=== PATIENT | male | born 1960 | race Caucasian/White ===

== ENCOUNTER 2021-01-24 20:46 | Emergency (ER) | payer OTHER ==
--- NOTE | 2021-01-24 21:29 | EDM.PDOC ---
ED HPI GENERAL MEDICAL PROBLEM - General Chief Complaint: Bite:Animal, Insect Stated Complaint: BITEN BY TICK Time Seen by Provider: 01/24/21 21:21 Source of Information: Reports: Patient, RN Notes Reviewed History Limitations: Reports: No Limitations - History of Present Illness INITIAL COMMENTS - FREE TEXT/NARRATIVE: Patient is a 60-year-old male who presents to the ER for a tick bite. Patient notes that he found the tick yesterday, on his right hip, and dislodge the tick from his skin. The tick head was intact, but he did have some redness at the site of the bite, this is roughly 2 x 4 cm, and he notes this was as big as it was yesterday, and has not spread since then. He is denying any fevers or chills, cough or shortness of breath, any sort of lethargy, myalgias, or joint aches. The redness does not have a bull's-eye type appearance to it. - Related Data Allergies Allergy/AdvReac Type Severity Reaction Status Date / Time No Known Allergies Allergy Verified 01/24/21 21:07 Past Medical History - Past Health History Medical/Surgical History: Denies Medical/Surgical History Social & Family History - Tobacco Use Tobacco Use Status *Q: Never Tobacco User - Recreational Drug Use Recreational Drug Use: No ED ROS GENERAL - Review of Systems Review Of Systems: Comprehensive ROS is negative, except as noted in HPI. ED EXAM, ANIMAL BITE - Physical Exam Exam: See Below Exam Limited By: No Limitations General Appearance: Alert, WD/WN, No Apparent Distress Respiratory/Chest: No Respiratory Distress, Lungs Clear, Normal Breath Sounds, No Accessory Muscle Use, Chest Non-Tender Cardiovascular: Normal Peripheral Pulses, Regular Rate, Rhythm, No Edema Peripheral Pulses: 2+: Radial (L), Radial (R) GI/Abdominal: Normal Bowel Sounds, Soft, Non-Tender, No Distention, No Mass Extremities: Normal Inspection, Normal Capillary Refill Neurological: Alert, Oriented, No Motor/Sensory Deficits Psychiatric: Normal Affect, Normal Mood Skin Exam: Warm/Dry, Other (erythema that measures 2 x 4cm on the patient's right hip area.) Course - Vital Signs Last Recorded V/S: Last Vital Signs Temp 98.1 F 01/24/21 21:02 Pulse 72 01/24/21 21:02 Resp 18 01/24/21 21:02 BP 109/74 01/24/21 21:02 Pulse Ox 99 01/24/21 21:02 - Re-Assessments/Exams Free Text/Narrative Re-Assessment/Exam: 01/24/21 21:31 Patient presents to the ER for his tick bite, the area itself looks just irritated, there is no sign of any worrisome infectious type processes, there does not seem to be any sort of bull's-eye ring lesion to it, patient be discharged home with general recommendations. Departure - Departure Time of Disposition: 21:27 Disposition: Home, Self-Care 01 Condition: Good Clinical Impression: Tick bite of abdominal wall Qualifiers: Encounter type: initial encounter Qualified Code(s): S30.861A - Insect bite (nonvenomous) of abdominal wall, initial encounter - Discharge Information *PRESCRIPTION DRUG MONITORING PROGRAM REVIEWED*: No *COPY OF PRESCRIPTION DRUG MONITORING REPORT IN PATIENT RAVINDER: No Instructions: Tick Bite Information, Adult, [id number] Referrals: PCP,None [Primary Care Provider] - Forms: ED Department Discharge Additional Instructions: You were evaluated in the ER today for the tick bite on your right hip. Although the area is red, it is likely irritation, from the tick biting you, there are no signs of infectious process apparent at today's visit. Please keep an eye on the area, if the redness starts spreading, or you start seeing red streaks up your abdomen, this to be cause for concern to return for immediate medical management. Keep the area clean with warm soapy water, and do not hesitate to return to the ER if symptoms change or worsen. Sepsis Event Note (ED) - Evaluation Sepsis Screening Result: No Definite Risk - Focused Exam Vital Signs: Vital Signs Temp Pulse Resp BP Pulse Ox 01/24/21 21:02 98.1 F 72 18 109/74 99
== END 2021-01-24 21:31 | disposition home or self-care (01) ==
LOC: JD.ED 20:46
DX: S30.861A Insect bite (nonvenomous) of abdominal wall, initial encounter (principal); S70.261A Insect bite (nonvenomous), right hip, initial encounter; W57.XXXA Bitten or stung by nonvenomous insect and other nonvenomous arthropods, initial encounter
CPT/HCPCS: 99283